=== PATIENT | female | born 1980 | race African-American/Black ===

== ENCOUNTER 2019-11-06 12:25 | Emergency (ER) | payer MEDICAID ==
[~2019-11-06] VITALS: Ht 160 cm; Wt 63.5 kg
[~2019-11-06 12:25] MED LIST: IBUPROFEN600 MG ORAL; TRAMADOL HCL50 MG ORAL
--- NOTE | 2019-11-06 12:30 | NUR ---
ED Nurse Note: Pt ambulated to ED from home d/t few vaginal discharge noted with swelling and itchiness for 2-3 days. Pt is AOx4, VSS, afebrile on triage. Placed on bed.
[2019-11-06 12:44] VITALS: BP 140/80
[2019-11-06 13:10] LABS: APPEARANCE,URINE CLEAR; BILIRUBIN, URINE NEGATIVE (NEGATIVE); COLOR,URINE PALE YELLOW; GLUCOSE, URINE (UA) NEGATIVE (NEGATIVE); KETONES,URINE NEGATIVE (NEGATIVE); LEUKOCYTE ESTERASE ,URINE NEGATIVE (NEGATIVE); NITRITE,URINE NEGATIVE (NEGATIVE); PH,URINE 6.5 (4.5-8.0); PROTEIN,URINE NEGATIVE (NEGATIVE); UROBILINOGEN,URINE NORMAL MG/DL (0.0-1.0)
[2019-11-06] MEDS ORDERED: Lidocaine 1% MPF 10mg/ml 5ml INJ ONE (13:30)
--- NOTE | 2019-11-06 13:44 | Emergency Room Report ---
History of Present Illness General Chief Complaint: Female Urogenital Problems Source: Patient Present Illness HPI 39 YO Female presents to the ED c/o 12/31 in severity pelvic pain and reports she notices it more during intercourse x 2 days. Pt. reports hx of uterine fibroids. She also reports having vaginal itching/swelling x 2 days. She states she recently had Abx for dental work done last week. Pt. denies vaginal d/c other than increased mucus. She denies fevers, chills, swollen tender lymph nodes or joint pain. She denies abdominal tenderness. She denies diarrhea but reports some constipation and urinary frequency/urgency. She denies hematuria. She wants to be treated for suspected STI out of precaution. COVID-19 risk:Travel to affect: No Has patient experienced figueroa: No Allergies: Coded Allergies: No Known Allergies (Unverified , 09/18/19) Patient History Past Medical History: see triage record Past Surgical History: none Pertinent Family History: none Now: No Reviewed Nursing Documentation: PMH: Agreed; PSxH: Agreed Review of Systems All Other Systems: negative except mentioned in HPI Physical Exam Vital Signs Date Time Temp Pulse Resp B/P (MAP) Pulse Ox O2 Delivery O2 Flow Rate FiO2 11/06/19 12:34 98.1 110 18 140/80 (100) 98 Room Air Sp02 EP Interpretation: reviewed, normal General Appearance: no apparent distress, alert, GCS 15, non-toxic Head: normocephalic, atraumatic Eyes: bilateral eye normal inspection, bilateral eye PERRL ENT: hearing grossly normal, normal voice Neck: full range of motion Respiratory: lungs clear, normal breath sounds, speaking full sentences Cardiovascular #1: regular rate, rhythm Gastrointestinal: normal bowel sounds, non tender, soft, non-distended, no guarding Rectal: deferred Genitourinary: normal inspection, no CVA tenderness, adnexa normal, bladder normal, deferred - by pt. Musculoskeletal: back normal, normal range of motion, gait/station normal, non- tender Neurologic: alert, motor strength/tone normal, oriented x3, sensory intact, responsive, speech normal Psychiatric: judgement/insight normal Skin: no rash Lymphatic: no adenopathy Medical Decision Making PA Attestation Dr. Gutierres is my supervising Physician whom patient management has been discussed with. Diagnostic Impression: Primary Impression: Urinary tract infection Qualified Codes: N30.01 - Acute cystitis with hematuria Additional Impressions: Pelvic pain Contact with and (suspected) exposure to infections with a predominantly sexual mode of transmission Yeast vaginitis ER Course 39 YO Female presents to the ED c/o 12/31 in severity pelvic pain and reports she notices it more during intercourse x 2 days. Pt. reports hx of uterine fibroids. She also reports having vaginal itching/swelling x 2 days. She states she recently had Abx for dental work done last week. Pt. denies vaginal d/c other than increased mucus. She denies fevers, chills, swollen tender lymph nodes or joint pain. She denies abdominal tenderness. She denies diarrhea but reports some constipation and urinary frequency/urgency. She denies hematuria. She wants to be treated for suspected STI out of precaution. Ddx considered but are not limited to , UTi , Pyelo, STI, Stone, Cystitis, vaginal laceration, Fibroid, PID, TOA, vaginitis. Vital signs: are WNL, pt. is afebrile H& PE are most consistent with: Vaginitis ORDERS: - UA labs are attached + Moderate bacteria -Hcg: negative ED INTERVENTIONS: - Rocephin 250iu IM -Azithromycin 1g PO -Toradol IM DISCHARGE: At this time pt. is stable for d/c to home. Will provide printed patient care instructions, and any necessary prescriptions. Care plan and follow up instructions have been discussed with the patient prior to discharge. discussed with the patient prior to discharge. Labs Test 11/06/19 12:35 Urine Color Pale yellow Urine Appearance Clear Urine pH 6.5 (4.5-8.0) Urine Specific [place] 1.005 (1.005-1.035) Urine Protein Negative (NEGATIVE) Urine Glucose (UA) Negative (NEGATIVE) Urine Ketones Negative (NEGATIVE) Urine Blood 2+ (NEGATIVE) Urine Nitrite Negative (NEGATIVE) Urine Bilirubin Negative (NEGATIVE) Urine Urobilinogen Normal MG/DL (0.0-1.0) Urine Leukocyte Esterase Negative (NEGATIVE) Urine RBC 0-2 /HPF (0 - 2) Urine WBC 0-2 /HPF (0 - 2) Urine Squamous Epithelial Cells Few /LPF (NONE/OCC) Urine Bacteria Moderate /HPF (NONE) Urine HCG, Qualitative Negative (NEGATIVE) Last Vital Signs Date Time Temp Pulse Resp B/P (MAP) Pulse Ox O2 Delivery O2 Flow Rate FiO2 11/06/19 12:44 98.1 18 140/80 98 Room Air 11/06/19 12:34 110 Disposition: HOME, SELF-CARE Condition: Stable Scripts Ibuprofen* (MOTRIN*) 600 Mg Tablet 600 MG ORAL THREE TIMES A DAY, #30 TAB 0 Refills Prov: Jazmín Evans 11/06/19 Fluconazole (FLUCONAZOLE) 100 Mg Tablet 100 MG ORAL DAILY, #3 TAB 0 Refills Prov: Jazmín Evans 11/06/19 Nitrofurantoin Monohyd/M-Cryst* (MACROBID 100 MG*) 100 Mg Capsule 100 MG ORAL EVERY 12 HOURS for 7 Days, #14 CAP Prov: Jazmín Evans 11/06/19 Referrals: [facility]ERR[facility] (PCP) Patient Instructions: Urinary Tract Infection, Vaginal Yeast Infection, Adult Additional Instructions: Take medications as directed. Follow up with a Primary Care Provider in 3-5 days, even if your symptoms have resolved. Return sooner to ED if new symptoms occur, or current symptoms become worse. - Please note that this Emergency Department Report was dictated using [employer] service representative technology software, occasionally this can lead to erroneous entry secondary to interpretation by the dictation equipment. Jazmín Evans Nov 06, 2019 13:44
[2019-11-06] MEDS ORDERED: NITROFURANTOIN100 M2 ORAL (13:45)
[2019-11-06] MEDS ORDERED: IBUPROFEN600 MG ORAL (13:45)
[2019-11-06] MEDS ORDERED: Ketorolac 30mg Inj IM ONE (13:45)
[2019-11-06] MEDS ORDERED: FLUCONAZOLE100 MG ORAL (13:45)
[2019-11-06] MEDS ORDERED: Azithromycin 250mg tab ORAL ONE (13:45)
[2019-11-06 14:02] VITALS: BP 138/80
--- NOTE | 2019-11-06 14:02 | NUR ---
ER DISCHARGE NOTE: Patient is cleared to be discharged per ERMD, pt is aox4, on room air, with stable vital signs. pt was given dc and prescription instructions, pt was able to verbalize understanding, pt id band removed. pt is able to ambulate with steady gait. pt took all belongings.
== END 2019-11-06 14:02 | disposition home or self-care (01) ==
LOC: EMR 12:50
DX: N30.01 Acute cystitis with hematuria (principal); R10.2 Pelvic and perineal pain; N76.0 Acute vaginitis; B37.9 Candidiasis, unspecified; Z20.2 Contact with and (suspected) exposure to infections with a predominantly sexual mode of transmission
CPT/HCPCS: 81003; 81025; 87086; 87181; 96372; 96374; J0696; J1885; Q0144; Z7502; 99284